=== PATIENT | female | born 1990 | race Caucasian/White ===

== ENCOUNTER 2022-08-18 12:31 | Emergency (ER) | payer MEDICAID ==
[~2022-08-18] VITALS: Ht 162.6 cm; Wt 106.8 kg
[2022-08-18 12:47] VITALS: BP 98/50
--- NOTE | 2022-08-18 14:02 | NUR ---
vas at [facility]
[2022-08-18] MEDS ORDERED: APIX5TAB3 PO ×2 (14:55→14:57)
== END 2022-08-18 15:06 | disposition home or self-care (01) ==
LOC: ER 12:33
DX: I82.402 Acute embolism and thrombosis of unspecified deep veins of left lower extremity (principal)
CPT/HCPCS: 93971; 99284

== ENCOUNTER 2022-08-21 11:38 | Emergency (ER) | payer MEDICAID ==
[~2022-08-21 11:38] MED LIST: APIX5TAB3 PO
== END 2022-08-21 12:39 | disposition left against medical advice (07) ==
LOC: ER 11:38
DX: Z00.00 Encounter for general adult medical examination without abnormal findings (principal); Z53.21 Procedure and treatment not carried out due to patient leaving prior to being seen by health care provider